=== PATIENT | female | born 1970 | race Two or more races ===

== ENCOUNTER 2016-10-24 18:17 | Emergency (ER) | payer SELFPAY ==
[2016-10-24] MEDS ORDERED: PATANOL5 M1 EACH EYE (18:53)
[2016-10-24] MEDS ORDERED: ZYRTEC10 M7 PO (18:53)
[2016-12-29] MEDS ORDERED: NO HOME MEDICATION (11:06)
[2016-12-29] MEDS ORDERED: ASPIRIN325 M3 PO (12:07)
[2016-12-30] MEDS ORDERED: FEOSOL325 M1 PO ×2 (10:07→10:13)
[2016-12-30] MEDS ORDERED: COLACE100 M1 PO ×2 (10:08→10:12)
== END 2016-10-24 19:14 ==
LOC: EDMED 18:17
DX: H10.13 Acute atopic conjunctivitis, bilateral (principal)